=== PATIENT | female | born 1960 | race Caucasian/White ===

== ENCOUNTER 2025-02-04 20:39 | Inpatient (IN) | payer MEDICARE, OTHER ==
[~2025-02-04] VITALS: Ht 165.1 cm; Wt 50.4 kg
[~2025-02-04 20:39] MED LIST: ALBU90OI6 INH; ALBU90OI61 INH; AMOCLA875 PO; Anastrozole1 GM PO; DOCU100 PO; FERSU300 PO; HYDACE5325; HYDR1TAB94 PO; METPRE4DP PO; OXYACE5T PO; WARF1 PO; WARF4 PO
[2025-02-04] MEDS ORDERED: Morphine Sulfate 4 MG/1 ML Injection IV ONE (21:05)
[2025-02-04 21:07] LABS: BASOPHILS ABSOLUTE AUTO 0.07 K/mm3 (0.00-0.23); BASOPHILS PERCENT AUTO 1 % (0-2); EOSINOPHILS ABSOLUTE AUTO 0.19 K/mm3 (0.00-0.68); EOSINOPHILS PERCENT AUTO 3 % (0-6); Hematocrit 44.2 % (33.0-51.0); Hemoglobin 13.8 g/dL (11.5-16.0); IMMATURE GRAN ABSOLUTE AUTO 0.05 K/mm3 (0.00-0.10); IMMATURE GRAN PERCENT AUTO 1 % (0-1); LYMPHOCYTES PERCENT AUTO 32 % (21-46); MONOCYTES ABSOLUTE AUTO 0.72 K/mm3 (0.16-1.47); MONOCYTES PERCENT AUTO 10 % (4-13); Mean Corpuscular HGB 29.6 pg (26.0-34.0); Mean Corpuscular HGB Conc 31.2 g/dL (31.5-36.5); Mean Corpuscular Volume 95 fL (80-100); Mean Platelet Volume 9.9 fL (9.1-12.4); NEUTROPHILS ABSOLUTE AUTO 4.15 K/mm3 (1.96-9.15); NEUTROPHILS PERCENT AUTO 55 % (41-73); Platelet Count 204 K/mm3 (150-400); RDW Coefficient Variation 13.2 % (11.7-14.2); RDW Standard Deviation 46.5 fL (35.1-46.3); Red Blood Cell Count 4.67 M/mm3 (3.80-5.20); White Blood Cell Count 7.58 K/mm3 (4.00-11.30)
[2025-02-04] MEDS ORDERED: Ondansetron HCl 2 MG / ML 2ML Vial IV ONE (21:15)
[2025-02-04 21:20] LABS: Albumin, Blood 3.6 g/dL (3.4-5.0); Albumin/Globulin Ratio 1.1 (0.8-1.8); Bilirubin, Total 0.3 mg/dL (0.1-1.0); Bun/Creatinine Ratio 15.2 (12.0-20.0); Calcium, Blood 8.8 mg/dL (8.5-10.1); Creatinine, Blood 0.73 mg/dL (0.40-1.00); Globulin, Blood 3.4 g/dL (2.2-4.0); Potassium, Blood 3.9 mmol/L (3.5-5.5)
[2025-02-04] MEDS ORDERED: Propofol 10mg/ml 20 ml Vial (Procedural) IV SCH (22:20)
[2025-02-04] MEDS ORDERED: FentaNYL Citrate 50 MCG/ML 2 ML Injection IV ONE (22:20)
[2025-02-04] MEDS ORDERED: NS 1,000 ML IV ONE (22:42)
[2025-02-05] MEDS ORDERED: HYDROcodone 5-APAP 325 TAB PO ONE (00:50)
[2025-02-05] MEDS ORDERED: Ketorolac Tromethamine 15mg Vial IV PRN (01:25)
[2025-02-05] MEDS ORDERED: Ondansetron HCl 2 MG / ML 2ML Vial IV PRN (01:25)
[2025-02-05] MEDS ORDERED: FentaNYL Citrate 50 MCG/ML 2 ML Injection IV PRN (01:30)
[2025-02-05] MEDS ORDERED: NS 1,000 ML IV SCH (01:30)
[2025-02-05] MEDS ORDERED: HydrALAZINE HCl 20 MG / ML 1ML Vial IV PRN (03:15)
--- NOTE | 2025-02-05 03:30 | NUR ---
ARRIVAL TO SURGICAL UNIT ROOM 213 FROM ER AT 0319. PT ARRIVED TO ROOM VIA GURNEY, PT TRANSFERED VIA SLIDER SHEET. PT CHANGED INTO HOSPITAL GOWN. PT RATED PAIN IN RIGHT HIP/RIGHT ARM 3/10 POST TRANSFER. A/O X4, ORIENTED TO ROOM AND CALL LIGHT. INFORMED OF POLICIES AND DENIES IGNITION SOURCES ON PERSON.
[2025-02-05 03:37] VITALS: BP 146/70
[2025-02-05] MEDS ORDERED: TRELEGY ELLIPT1 EACH IH (03:55)
[2025-02-05] MEDS ORDERED: PARO10 PO (03:57)
[2025-02-05] MEDS ORDERED: ATOR40TA PO (03:57)
[2025-02-05] MEDS ORDERED: TRAZ100 PO (03:58)
[2025-02-05] MEDS ORDERED: ANASTROZOLE1 M7 PO (04:00)
[2025-02-05 04:17] LABS: BASOPHILS ABSOLUTE AUTO 0.04 K/mm3 (0.00-0.23); BASOPHILS PERCENT AUTO 0 % (0-2); EOSINOPHILS PERCENT AUTO 0 % (0-6); Hematocrit 40.7 % (33.0-51.0); Hemoglobin 13.2 g/dL (11.5-16.0); IMMATURE GRAN ABSOLUTE AUTO 0.05 K/mm3 (0.00-0.10); IMMATURE GRAN PERCENT AUTO 1 % (0-1); LYMPHOCYTES ABSOLUTE AUTO 1.06 K/mm3 (0.84-5.20); LYMPHOCYTES PERCENT AUTO 11 % (21-46); MONOCYTES ABSOLUTE AUTO 0.72 K/mm3 (0.16-1.47); MONOCYTES PERCENT AUTO 8 % (4-13); Mean Corpuscular HGB 30.4 pg (26.0-34.0); Mean Corpuscular HGB Conc 32.4 g/dL (31.5-36.5); Mean Corpuscular Volume 94 fL (80-100); Mean Platelet Volume 9.9 fL (9.1-12.4); NEUTROPHILS ABSOLUTE AUTO 7.66 K/mm3 (1.96-9.15); NEUTROPHILS PERCENT AUTO 80 % (41-73); Platelet Count 173 K/mm3 (150-400); RDW Coefficient Variation 13.3 % (11.7-14.2); RDW Standard Deviation 46.2 fL (35.1-46.3); Red Blood Cell Count 4.34 M/mm3 (3.80-5.20); White Blood Cell Count 9.53 K/mm3 (4.00-11.30)
[2025-02-05 04:35] LABS: International Normalized Ratio 0.91; Prothrombin Time Results 9.8 Sec (9.7-11.5)
[2025-02-05 04:38] LABS: Albumin, Blood 3.6 g/dL (3.4-5.0); Albumin/Globulin Ratio 1.1 (0.8-1.8); Bilirubin, Total 0.3 mg/dL (0.1-1.0); Bun/Creatinine Ratio 16.9 (12.0-20.0); Calcium, Blood 8.5 mg/dL (8.5-10.1); Creatinine, Blood 0.65 mg/dL (0.40-1.00); Globulin, Blood 3.4 g/dL (2.2-4.0); Potassium, Blood 4.2 mmol/L (3.5-5.5)
--- NOTE | 2025-02-05 05:55 | NUR ---
SHIFT SUMMARY NOC. PT ADMIT THIS SHIFT FOR PERIPROSTHETIC FX TO RIGHT FEMUR. PT ALSO HAD RIGHT SHOULDER REDUCED IN ER. PT A/O X4. MEDICATED WITH TORADOL X1. FLUIDS RUNNING PER EMAR. PT MAKES NEEDS KNOWN, CALL LIGHT IN REACH.
[2025-02-05] MEDS ORDERED: Albuterol HFA200 ACT/6.7 GM INH INH PRN (06:40)
[2025-02-05] MEDS ORDERED: Mometasone/Formoterol MDI 100/5 mcg 13 GM INH SCH (06:45)
[2025-02-05] MEDS ORDERED: Ipratropium Bromide INH 0.02% 0.5 mg/2.5ML Vial INH SCH (06:45)
[2025-02-05 07:15] VITALS: BP 157/70
[2025-02-05] MEDS ORDERED: Acetaminophen 325 MG TABLET PO PRN (08:00)
[2025-02-05] MEDS ORDERED: OxyCODONE 5 mg/Acetamin 325 mg TABLET PO PRN (08:00)
[2025-02-05] MEDS ORDERED: Anastrozole 1 MG TAB PO SCH (09:00)
[2025-02-05] MEDS ORDERED: PARoxetine HCl 10 MG Tab PO SCH (09:00)
[2025-02-05 15:24] VITALS: BP 155/68
--- NOTE | 2025-02-05 15:35 | NUR ---
IV FLUIDS FINISHED. IV TO SL
[2025-02-05 19:47] VITALS: BP 90/64
[2025-02-05] MEDS ORDERED: TraZODone HCl 100 MG Tab PO SCH (21:00)
[2025-02-06] VITALS (19 sets, daily range): BP systolic 87–139; BP diastolic 47–82
--- NOTE | 2025-02-06 04:17 | NUR ---
SHIFT SUMMARY NO ACUTE EVENTS. RIGHT SHOULDER REMAINS IN SLING, PATIENT DENIES PAIN. RIGHT HIP HAS NOTE SWELLING. REPOSIIONED WITH 2 ASSIST. HAS BEEN NPO SINCE MIDNIGHT, FOR POSSIBLE SURGERY IN AM. ATTENDS IN PLACE WITH NANDO. PATIENT ON 2L NC, REPORTS BASELINE. SATS REMAIN ABOVE 90%. CALL LIGHT IN REACH. ABLE TO MAKE NEEDS KNOWN.
[2025-02-06 04:52] LABS: Hematocrit 34.6 % (33.0-51.0); Hemoglobin 11.2 g/dL (11.5-16.0)
[2025-02-06 05:11] LABS: Calcium, Blood 8.9 mg/dL (8.5-10.1); Creatinine, Blood 0.63 mg/dL (0.40-1.00); Magnesium, Blood 2.1 mg/dL (1.6-2.4); Phosphorus, Blood 3.4 mg/dL (2.5-4.9); Potassium, Blood 4.4 mmol/L (3.5-5.5)
[2025-02-06] MEDS ORDERED: NS 1,000 ML IV SCH (05:30)
--- NOTE | 2025-02-06 07:20 | NUR ---
DR LOJA IN TO SEE PT.
[2025-02-06] MEDS ORDERED: Ipratropium Bromide INH 0.02% 0.5 mg/2.5ML Vial INH SCH (07:44)
--- NOTE | 2025-02-06 07:48 | NUR ---
0739: RN TO ROOM TO REASSESS VITAL SIGNS; BP TAKEN ON RIGHT ARM. PT WITH NO C/O PAIN TO RIGHT ARM AT THIS TIME. PT STATES LEFT ARM UNABLE TO BE USED D/T LYMPH NODE PRECAUTIONS. PT BREATHING TREATMENT COMPLETED WHILE RN IN ROOM; RT AWARE.
--- NOTE | 2025-02-06 09:33 | NUR ---
CC AT BEDSIDE; RN TO ROOM TO SALINE LOCK PATIENT AND NOTIFY PT OF SURGERY SCHEDULE CHANGE.
[2025-02-06] MEDS ORDERED: Ropivacaine 0.5% HCl/Pf 123.125 MG,EPINEPHrine HCL 0.25 MG,Ketorolac Tromethamine 15 MG... INFIL SCH (09:50)
[2025-02-06] MEDS ORDERED: CeFAZolin Sodium 2,000 MG in NS 100 ML IV SCH ×2 (09:50→17:00)
[2025-02-06] MEDS ORDERED: OxyCODONE HCL 10 MG TABCR PO SCH (09:50)
[2025-02-06] MEDS ORDERED: Lactated Ringer's 1,000 ML IV SCH (09:50)
[2025-02-06] MEDS ORDERED: Tranexamic Acid 100 ML IV SCH (09:50)
[2025-02-06] MEDS ORDERED: Chlorhexidine Mouth Care 15 ML UDC MT SCH (09:50)
[2025-02-06] MEDS ORDERED: Bupivacaine 0.5% W/EPI 1:200000 SDV 30 ML Vial ONE (09:50)
[2025-02-06] MEDS ORDERED: Acetaminophen 500 MG Tab PO SCH (09:50)
--- NOTE | 2025-02-06 10:00 | NUR ---
History, Chart, Medications and Allergies reviewed before start of procedure. Pre-Op teaching done. Pt verbalizes understanding. Patient confirms NPO status and agrees with scheduled surgery. PT LEFT ALL BELONGINGS IN ROOM.
[2025-02-06] MEDS ORDERED: Etomidate 2MG / ML 10ML Vial ONE (10:24)
[2025-02-06] MEDS ORDERED: FentaNYL Citrate 50 MCG/ML 2 ML Injection ONE ×3 (10:25→13:42)
[2025-02-06] MEDS ORDERED: Phenylephrine HCl 10mg/ml 1 ml Vial ONE (10:37)
[2025-02-06] MEDS ORDERED: Dexamethasone Sod Phos 10 MG/ML 1ML VIAL ONE (11:00)
[2025-02-06] MEDS ORDERED: Ondansetron HCl 2 MG / ML 2ML Vial ONE (11:00)
[2025-02-06] MEDS ORDERED: Ketorolac Tromethamine 30mg Vial ONE (11:01)
[2025-02-06] MEDS ORDERED: Labetalol HCL 5 MG/ML 4ML Injection (Single Dose) ONE (11:09)
[2025-02-06] MEDS ORDERED: HYDROmorphone HCl/Pf 1MG SYR IV PRN ×2 (11:55)
[2025-02-06] MEDS ORDERED: Albuterol 2.5 MG/3 ML VIAL INH PRN (11:55)
[2025-02-06] MEDS ORDERED: Labetalol HCL 5 MG/ML 4ML Injection (Single Dose) IV PRN (11:55)
[2025-02-06] MEDS ORDERED: Metoclopramide HCl 5MG / ML 2ML Vial IV PRN (11:55)
[2025-02-06] MEDS ORDERED: FentaNYL Citrate 50 MCG/ML 2 ML Injection IV PRN ×2 (11:55→12:00)
[2025-02-06] MEDS ORDERED: Ondansetron HCl 2 MG / ML 2ML Vial IV PRN (12:00)
[2025-02-06] MEDS ORDERED: Rocuronium Bromide 10 MG/ML 5ML Injection IV ONE (12:22)
[2025-02-06] MEDS ORDERED: Tranexamic Acid 100 ML IV ONE (13:29)
[2025-02-06] MEDS ORDERED: CeFAZolin Sodium 2,000 MG VIAL ONE (13:30)
[2025-02-06] MEDS ORDERED: Glycopyrrolate 0.2 MG/ML 5ML VIAL ONE (14:21)
[2025-02-06] MEDS ORDERED: Neostigmine Methylsulfate 5MG/5ML SYR ONE (14:21)
--- NOTE | 2025-02-06 16:28 | NUR ---
1600: THIS RN TO ROOM; PT ARRIVED FROM PACU TO 213; DROWSY BUT RESPONDS TO VOICE COMMAND AND ABLE TO ANSWER QUESTIONS APPROPRIATELY. PATIENT ARRIVES WITH RODAS CATHETER IN PLACE; DRAINING TO GRAVITY. PATIENT ARRIVES WITH NON-WORKING AND LEAKING LEFT FOREARM IV, REMOVED; PATIENT HAD L WRIST IV PLACED WHILE OFF UNIT. PATIENT WITH NO COMPLAINTS OF PAIN AT THIS TIME. PATIENT BREATHING NON-LABORED AND ON 2L OXYGEN VIA NC. BED LOWERED AND ALARM ON FOR SAFETY; PT CALL LIGHT WITHIN REACH.
--- NOTE | 2025-02-06 17:26 | NUR ---
SUMMARY: PT TAKEN TO OR FOR RIGHT HIP SURGICAL REPAIR DURING SHIFT; REVISION OF PREVIOUS R HIP HARDWARE. PT RETURNED TO ROOM AND AWAKENS TO VOICE. AQUACEL PLACED BY OR STAFF TO RIGHT LEG FROM HIP TO MID THIGH; CDI. RODAS CATHETER WAS PLACED IN OR AND PT RETURNED TO ROOM WITH CATHETER IN PLACE, DRAINING.
[2025-02-06] MEDS ORDERED: Dextran/Hypromellose/Glycerin 15 DROP/ML BTL LEFTEYE PRN (18:25)
--- NOTE | 2025-02-06 18:27 | NUR ---
1820: RN TO ROOM TO RESTART NS PER EMAR. PT C/O LEFT EYE BURNING AND TEARING. DR SNYDER NOTIFIED AND TELEPHONE ORDERS FOR ARTIFICIAL TEARS GIVEN. PT CALL LIGHT WITHIN REACH AND BED ALARM ON FOR SAFETY.
--- NOTE | 2025-02-06 18:46 | NUR ---
1835: PT CALLING C/O NAUSEA. PT MEDICATED PER EMAR.
[2025-02-07] VITALS (9 sets, daily range): BP systolic 107–181; BP diastolic 52–92
[2025-02-07 05:07] LABS: Hematocrit 25.7 % (33.0-51.0); Hemoglobin 7.9 g/dL (11.5-16.0); Mean Corpuscular HGB 29.9 pg (26.0-34.0); Mean Corpuscular HGB Conc 30.7 g/dL (31.5-36.5); Mean Corpuscular Volume 97 fL (80-100); Mean Platelet Volume 10.2 fL (9.1-12.4); Platelet Count 157 K/mm3 (150-400); RDW Coefficient Variation 13.4 % (11.7-14.2); RDW Standard Deviation 47.9 fL (35.1-46.3); Red Blood Cell Count 2.64 M/mm3 (3.80-5.20); White Blood Cell Count 10.22 K/mm3 (4.00-11.30)
[2025-02-07 05:22] LABS: Bun/Creatinine Ratio 23.4 (12.0-20.0); Calcium, Blood 8.1 mg/dL (8.5-10.1); Creatinine, Blood 0.73 mg/dL (0.40-1.00); Magnesium, Blood 1.9 mg/dL (1.6-2.4); Phosphorus, Blood 3.2 mg/dL (2.5-4.9); Potassium, Blood 4.7 mmol/L (3.5-5.5)
--- NOTE | 2025-02-07 05:32 | NUR ---
SHIFT SUMMARY POD 1 ORIF R HIP PERIPROSTHETIC. VSS, O2 SAT >93% ON 2L O2 VIA NC; PT DESAT TO 75% WHEN ON RA. MENTATION REMAINS CONFUSED POST-OP. PT TOLERATING DIET, REPORTS NAUSEA & MIN EMESIS. RODAS DRAINING YELLOW URINE. NO AMB OVERNIGHT. PT REPORTS PAIN TOLERABLE, MEDICATED PER EMAR. PT REPORTS MIN RELIEF OF L EYE "ITCHYNESS" c EYE DROPS PER EMAR. R HIP AQUACEL C/D/I, POLAR PACK IN USE. SLING TO R ARM, PT FREQUENTLY REMOVES & REQUIRES EDUCATION c PROPER USE/PLACEMENT. ANTICIPATED TO WORK c PHYSCIAL THERAPY TODAY. CALL LIGHT IN REACH, BED ALARM IN USE, WILL REPORT TO DAY RN.
[2025-02-07] MEDS ORDERED: IPRAT-ALBUT 0.5-3 ML INH (10:54)
--- NOTE | 2025-02-07 10:57 | NUR ---
INCREASED REDNESS/SWELLING/WARMTH TO R KNEE NOTIFIED DR LOJA AND DR CORTEZ.
--- NOTE | 2025-02-07 11:36 | NUR ---
THERAPY AT BEDSIDE; SUPERVISOR FUSING ROOM ASSISTED PT TO CHAIR
--- NOTE | 2025-02-07 12:08 | NUR ---
1157: RN TO ROOM; PT REMOVED OXYGEN AND REPORTS ACCIDENTAL REMOVAL. NC REPLACED AND PT TRAY PROVIDED TO PT BY MODELING AGENT. CONTINOUS PULSE OX PLACED ON PT; CHAIR ALARM ON FOR SAFETY.
[2025-02-07] MEDS ORDERED: SPIRIVA RESPIMAT4 G3 INH (14:00)
--- NOTE | 2025-02-07 14:09 | NUR ---
1403: CALL TO DR SNYDER REGARDING NO CHEMICAL DVT PROPHYLAXIS. VERBAL ORDERS GIVEN AND ORDERS PLACED. PROVIDER NOTIFIED OF PATIENT INTERMITTENT CONFUSION, NO NEW ORDERS PLACED.
[2025-02-07] MEDS ORDERED: Tiotropium Bromide 2.5 MCG/ACT MIST INHAL (10 ACT/4 GM) INH SCH (14:10)
--- NOTE | 2025-02-07 14:42 | NUR ---
1435: CC TO BEDSIDE. PT REFUSES TO DC TO SNF AT THIS TIME AND IS BECOMING ANGRY AT SITUATION. RN REINFORCED RIGHT ARM TO BE IN SLING AND TO NOT USE FOR WEIGHT BEARING. PT VERBALIZED UNDERSTANDING.
--- NOTE | 2025-02-07 15:02 | NUR ---
SUMMARY: PT HAS BEEN INTERMITTENTLY CONFUSED/AGITATED THROUGHOUT SHIFT; DR SNYDER AWARE. PT WORKED WITH PT AND IS ABLE TO TTWB WITH RIGHT LEG WHILE USING DAMIÁN WALKER WITH LEFT ARM; MULTIPLE REMINDERS GIVEN TO PT TO REMAIN NWB WITH RIGHT ARM. POLAR PACK IN PLACE TO RIGHT HIP; AQUACEL RIGHT HIP TO MID THIGH IS CDI. BED ALARM IS ON FOR SAFETY.
--- NOTE | 2025-02-07 16:08 | NUR ---
RN ROUNDED TO ROOM. PT SLEEPING WITH NC IN PLACE; CALL LIGHT WITHIN REACH. BED ALARM ON FOR SAFETY.
--- NOTE | 2025-02-07 17:15 | NUR ---
1651: SUSTAINABLE AGRICULTURE FACULTY CALLED RN TO NOTIFY THAT PT HAD REMOVED NC; OXYGEN SATURATION DECREASED TO MID 70% QUICKLY. SUSTAINABLE AGRICULTURE FACULTY ASSISTED PT TO REPLACE NC AND PT RECOVERED TO 94% WITH DEEP BREATHING. RN TO ROOM, EDUCATED PT ON IMPORTANCE OF KEEPING NC IN PLACE. PT VERBALIZED UNDERSTANDING. CALL LIGHT WITHIN REACH, BED IN LOW POSITION WITH BED ALARM ON.
--- NOTE | 2025-02-07 18:15 | NUR ---
1800: RN TO ROOM TO HELP CLEAN PATIENT. PT ATTEMPTED TO REPOSTION HERSELF IN BED AND CAUSED HERSELF PAIN TO RIGHT HIP. RN TO PYXIS TO PULL TORADOL DOSE AND UNAVAILABLE. CALL TO PROVIDER TO DISCUSS PAIN CONTROL OPTIONS DUE TO CONFUSION AND ONLY NARCOTICS ARE CURRENTLY AVAILABLE. LEFT MESSAGE FOR PROVIDER TO CALL BACK. PT HR AND BP ELEVATED; AUDIBLE WHEEZING DURING EPISODE OF PAIN. CALL TO RT PLACED FOR PRN BREATHING TREATMENT. 1820: RN TO ROOM AND PATIENT CALMING DOWN; PT REPORTS PAIN STILL PRESENT. BED IN LOW POSITION, CALL LIGHT WITHIN REACH, BED ALARM ON FOR SAFETY.
[2025-02-07] MEDS ORDERED: Polyethylene Glycol 3350 17 gm PO SCH (21:00)
[2025-02-07] MEDS ORDERED: Docusate Sodium/Senna 1 Tab PO SCH (21:00)
[2025-02-08] VITALS (9 sets, daily range): BP systolic 141–164; BP diastolic 59–119
--- NOTE | 2025-02-08 05:05 | NUR ---
SHIFT SUMMARY POD 2 R HIP ORIF PERIPROSTETHETIC. NO ACUTE CHANGES OVERNIGHT. CONT BIOX IN USE, O2 SAT >88% ON 4L O2 VIA NC. PT DESAT TO 78% WHEN NC REMOVED. PT INTERMITTENTLY CONFUSED T/O NIGHT. PT ATTEMPTED TO IND AMB ONCE OVERNIGHT, PT ABLE TO BE REDIRECTED BACK TO BED. PT MINIMALLY COMPLIANT c NWB OF R ARM. PT SLING ADJUSTED APPROX Q2HR. NEW AQUACEL PLACED THIS SHIFT - C/D/I. PT REPORTS PAIN TOLERABLE, DENIES NEED OF MEDS PER EMAR WHEN OFFERED. TOLERATING ORALS c FREQUENT COUGHS/ MUCUS PRODUCTION. VOIDING, INCONT, [place] & ATTENDS IN USE. CALL LIGHT IN REACH, BED ALARM IN USE, WILL REPORT TO DAY RN.
[2025-02-08 05:42] LABS: Hematocrit 21.9 % (33.0-51.0)
[2025-02-08 06:15] LABS: Bun/Creatinine Ratio 22.3 (12.0-20.0); Calcium, Blood 8.6 mg/dL (8.5-10.1); Creatinine, Blood 0.54 mg/dL (0.40-1.00); Magnesium, Blood 1.9 mg/dL (1.6-2.4); Potassium, Blood 4.1 mmol/L (3.5-5.5)
[2025-02-08] MEDS ORDERED: Enoxaparin 40 MG/0.4 ML SYR SC SCH (09:00)
[2025-02-08] MEDS ORDERED: NS 500 ML IV SCH (09:30)
[2025-02-08] MEDS ORDERED: CeFAZolin Sodium 1,000 MG in NS 50 ML IV SCH (10:11)
[2025-02-08] MEDS ORDERED: NS 250 ML IV PRN (13:35)
--- NOTE | 2025-02-08 18:03 | NUR ---
SHIFT SUMMARY PT A&OX4, VSS, ON 2L O2 NC, TOLERATING MINIMAL PO, VOIDING, AND PAIN MANAGED PER EMAR. PT ATTEMPTED TO WORK W/ OT, BUT UNSUCCESSFUL DUE TO INCONTINENCE. PT DID NOT AMB OUT OF BED THIS SHIFT. HGB 7.0, 1 UNIT OF PRBC'S GIVEN PER ORDER. AQUACEL DRESSING REMAINS C/D/I AND RUE SLING IN PLACE. DAMIÁN WALKER DELIVERED TO ROOM BY CARE COORDINATION. PT NOT AGREEABLE TO SNF. PT STATES SHE WILL BE D/C FRI HOME. NO OTHER ACUTE CHANGES. CALL LIGHT WITHIN REACH AND PT ABLE TO MAKE NEEDS KNOWN.
[2025-02-09] MEDS ORDERED: Lactated Ringer's 1,000 ML IV SCH (02:35)
--- NOTE | 2025-02-09 02:35 | NUR ---
UPDATE NEW ORDER OBTAINED FROM HOSPITALIST FOR LR AT 75ML/HR X 1 R/T PT'S HYDRATION STATUS. WILL ADMINISTER AT DIRECTED AND MONITOR PATIENT FOR CHANGES
[2025-02-09 03:38] VITALS: BP 150/70
--- NOTE | 2025-02-09 04:27 | NUR ---
SHIFT SUMMARY POD 3 RIGHT HIP ORIF. AQUACEL TO INCISION CDI. EXTENSIVE ECCHYMOSIS NOTED AROUND INCISION AND TO RIGHT THIGH/GROIN. MEDICATED X 1 FOR PAIN. POOR PO INTAKE, ENCOURAGED T/O SHIFT. PT REFUSED POLAR PACK FOR MOST OF SHIFT, APPLIED TO RIGHT HIP AT THIS TIME. SLING TO RIGHT ARM IN PLACE. IVF INFUSING PER ORDERS. UP TO BSC WITH 2 PERSON, DAMIÁN WALKER AND GB. CONT BIOX IN PLACE, SPO2 AT 92- 94% ON 2L NC. PRN BREATHING TX 2X FOR INCREASED WHEEZING. PLAN FOR POSSIBLE DC HOME WITH HH TODAY. WILL GIVE REPORT TO ONCOMING RN.
[2025-02-09 05:12] LABS: Hematocrit 25.4 % (33.0-51.0); Hemoglobin 8.3 g/dL (11.5-16.0)
[2025-02-09 05:37] LABS: Bun/Creatinine Ratio 17.9 (12.0-20.0); Calcium, Blood 8.3 mg/dL (8.5-10.1); Creatinine, Blood 0.45 mg/dL (0.40-1.00); Magnesium, Blood 1.9 mg/dL (1.6-2.4); Phosphorus, Blood 2.2 mg/dL (2.5-4.9)
[2025-02-09 07:21] VITALS: BP 154/65
[2025-02-09] MEDS ORDERED: DOCUZEN 8.6-501 EACH PO (12:42)
[2025-02-09] MEDS ORDERED: ARTIFICIAL TEAR15 M7 LEFTEYE (12:42)
[2025-02-09] MEDS ORDERED: MIRALAX1714 PO (12:43)
[2025-02-09] MEDS ORDERED: Percocet 5-3251 EACH PO (12:43)
[2025-02-09 14:49] VITALS: BP 156/76
--- NOTE | 2025-02-09 15:21 | NUR ---
DISCHARGE PT EDUCATED ON AND RECEIVED PRINTED DISCHARGE INSTRUCTIONS. VERBAILIZE UNDERSTANDING. NEW RX FAXED TO [facility], THE [facility] RX GIVEN TO PT. PT LEFT WITH ALL PERSONAL BELONGINGS HEMIWALKER, PLUS EXTRA AQUACEL DRESSINGS. PT ESCORTED OUT VIA WHEELCHAIR, FAMILY WAS OUTSIDE TO DRIVE THE PT HOME.
== END 2025-02-09 15:02 | disposition home health service (06) | DRG 467 ==
LOC: ER 20:39 → ERHOLD 20:40 → SURS 02-05 02:55
PROVIDERS: Hospitalist; Student in an Organized Health Care Education/Training Program; ADMIT Internal Medicine
PROC: 0RSJXZZ Reposition Right Shoulder Joint, External Approach (ICD-10-PCS; 2025-02-04)
PROC: 30233N1 Transfusion of Nonautologous Red Blood Cells into Peripheral Vein, Percutaneous Approach (ICD-10-PCS; 2025-02-07)
PROC: 0SR904Z Replacement of Right Hip Joint with Ceramic on Polyethylene Synthetic Substitute, Open Approach (ICD-10-PCS; principal; 2025-02-08)
PROC: 0SP90JZ Removal of Synthetic Substitute from Right Hip Joint, Open Approach (ICD-10-PCS; 2025-02-08)
DX: S72.111A Displaced fracture of greater trochanter of right femur, initial encounter for closed fracture (principal); E44.0 Moderate protein-calorie malnutrition; M97.01XA Periprosthetic fracture around internal prosthetic right hip joint, initial encounter; Z68.1 Body mass index [BMI] 19.9 or less, adult; Z96.641 Presence of right artificial hip joint; Z96.642 Presence of left artificial hip joint; F17.210 Nicotine dependence, cigarettes, uncomplicated; S43.004A Unspecified dislocation of right shoulder joint, initial encounter; R03.0 Elevated blood-pressure reading, without diagnosis of hypertension; D64.9 Anemia, unspecified; Z87.59 Personal history of other complications of pregnancy, childbirth and the puerperium; Z79.51 Long term (current) use of inhaled steroids; Z79.899 Other long term (current) drug therapy; Z79.01 Long term (current) use of anticoagulants; Z79.2 Long term (current) use of antibiotics; Z79.891 Long term (current) use of opiate analgesic; Z85.3 Personal history of malignant neoplasm of breast; Z98.51 Tubal ligation status; Z90.89 Acquired absence of other organs; Z90.12 Acquired absence of left breast and nipple; W18.39XA Other fall on same level, initial encounter
CPT/HCPCS: 23650; 36415; 36430; 72170; 73030; 73502; 73552; 80048; 80053; 83735; 83880; 84100; 85014; 85018; 85025; 85027; 85610; 86850; 86900; 86901; 86923; 93005; 93010; 94640; 94664; 94760; 94762; 96374-59; 96375; 96375-59; 97110; 97162; 97165; 97530; 97535; 99152; 99153; 99285-25; A9270; G0378; J0171; J0690; J0735; J1100; J1650; J1885; J2270; J2371; J2405; J2704; J2710; J2795; J3010; J7030; J7040; J7050; J7120; P9016